=== PATIENT | male | born 1960 | race American Indian/Alaskan Native ===

== ENCOUNTER 2020-05-01 06:07 | Day surgery (SDC) | payer BC ==
[2020-05-01] MEDS ORDERED: ASPIRIN EC 325 MG TAB PO SCH (07:12)
[2020-05-01] MEDS: SODIUM CHLORIDE 0.9% 500 ML 500 ML IV SCH ×2 (07:33→08:38)
[2020-05-01] MEDS ORDERED: MIDAZOLAM 2 MG/2 ML INJ ONE (08:05)
[2020-05-01] MEDS ORDERED: fentaNYL 100 MCG/2 ML INJ ONE (08:05)
[2020-05-01] MEDS ORDERED: HEPARIN/NS 5000 UNIT/500ML 1,000 ML IR ONE (08:05)
[2020-05-01] MEDS: VERAPAMIL 5 MG/2 ML INJ ONE ×3 (08:37→08:41)
[2020-05-01] MEDS: LIDOCAINE (2%) 20 MG/1 ML VIAL 20 ML MDV INFILTRATI ONE ×3 (08:37→08:39)
[2020-05-01] MEDS: HEPARIN 10,000 UNITS/10 ML VIAL ONE ×3 (08:37→08:41)
[2020-05-01] MEDS: NITROGLYCERIN SYRINGE 3 ML ONE ×3 (08:39→08:41)
[2020-05-01] MEDS ORDERED: traMADol 50 MG TAB PO PRN (09:04)
[2020-05-01] MEDS ORDERED: HYDROcodone/ACETAMINOPHEN 5-325 MG TAB PO PRN (09:04)
--- NOTE | 2020-05-01 09:07 | Short Stay Summary ---
Short Stay Documentation Date of service: 05/01/20 - History H&P: obtained from office - Allergies and Medications Current Medications: Allergies No Known Allergies Allergy (Unverified 01/14/20 08:14) Home Medications Medication Instructions Recorded Confirmed Last Taken Type Amitriptyline [Elavil] 50 mg PO DAILY 05/01/20 05/01/20 04/30/20 History 50 mg Sildenafil Citrate 100 mg PO PRN PRN 05/01/20 05/01/20 04/22/20 History 100 mg Active Medications Hydrocodone Bitart/Acetaminophen ([place] 5/325) 1 each PO Q4H PRN PRN Reason: Pain, Moderate (4-6) Aspirin (Ecotrin) 325 mg PO ONCE SOFI Stop: 05/01/20 09:12 Last Admin: 05/01/20 07:31 Dose: 325 mg Documented by: Sodium Chloride (Nacl 0.9% 500 Ml) 500 mls @ 50 mls/hr IV DIRECT SOFI Stop: 05/01/20 17:59 Last Admin: 05/01/20 08:38 Dose: 50 mls/hr Documented by: Tramadol HCl (Ultram) 50 mg PO Q4H PRN PRN Reason: Pain, Mild (1-3) - Brief post op/procedure progress note Date of procedure: 05/01/20 Pre-op diagnosis: sob Post-op diagnosis: same Procedure: see report - normal coronaries and normal lv function Anesthesia: local Estimated blood loss: minimal Pathology: none Condition: stable - Disposition Condition at discharge: Good Disposition: DC-01 TO HOME OR SELFCARE - Discharge Diagnoses (1) Hypertension Status: Chronic Qualifiers: Hypertension type: essential hypertension Qualified Code(s): I10 - Essential (primary) hypertension (2) SOB (shortness of breath) Status: Chronic Short Stay Discharge Plan Activity: advance as tolerated Diet: low fat, low cholesterol, low salt Wound: keep clean and dry Follow up with: ERICK HERNANDEZ MD [Primary Care Provider] - 7 Days
--- NOTE | 2020-05-01 09:07 | Cardiac Catherization Report ---
LEFT HEART CATHETERIZATION CLINICAL INFORMATION: This is a 59-year-old patient with persistent shortness of breath, has a fixed inferior defect on stress test, here for left heart catheterization for suspected coronary artery disease. Procedure was done with moderate sedation started at 0837 hours, finished at 0847 hours, 10 minutes of moderate sedation. Procedure was done via the right radial artery, sterile technique, local anesthesia, 6-[place] radial sheath inserted. Left system engaged with JL3.5 catheter. Left main is large and patent, bifurcates into large LAD that is patent from proximally and distally. Diagonal 1 is a medium caliber vessel, patent. Circumflex and AV groove is a large caliber vessel, patent. OM1 is a large caliber vessel with an upper and lower branch are patent. OM2 is a small caliber vessel. OM3 and 4 are small to medium caliber vessel, patent. RCA was engaged with JR4, is a large dominant vessel, patent from proximally and distally. PDA is medium caliber vessel. PLV is a medium to small caliber vessel, patent. LV gram done in MARKY and HATHAWAY view shows normal LV function, LVEDP of 14 mmHg, LV is 126, aortic is 126/68. No gradient across the aortic valve on pullback. 5-Palestinian catheters all taken over guidewire, 6-[place] radial sheath was discontinued. Radial band applied. No hematoma, no bleeding. SUMMARY: Left main patent; left anterior descending patent; diagonal patent; circumflex patent; OM1, OM2, OM3 and OM4 are patent; right coronary artery large, dominant, patent; normal left ventricular function. Continue risk factor modification. Consider pulmonary workup for shortness of breath. JOB# [id number] JOHN/NTS
[2020-05-01 12:04] VITALS: BP 109/67
== END 2020-05-01 13:05 | disposition home or self-care (01) ==
LOC: CATH 06:07 → CATHLABREC 06:07
PROVIDERS: ATTEND Internal Medicine
DX: R06.02 Shortness of breath (principal); R94.39 Abnormal result of other cardiovascular function study; I10 Essential (primary) hypertension; K21.9 Gastro-esophageal reflux disease without esophagitis; M19.90 Unspecified osteoarthritis, unspecified site; F32.9 Major depressive disorder, single episode, unspecified; I20.8 Other forms of angina pectoris; E78.2 Mixed hyperlipidemia; F41.9 Anxiety disorder, unspecified; Z79.899 Other long term (current) drug therapy; Z87.891 Personal history of nicotine dependence; Z72.89 Other problems related to lifestyle; Z83.3 Family history of diabetes mellitus; Z82.49 Family history of ischemic heart disease and other diseases of the circulatory system
CPT/HCPCS: 93005; 93458; 99156; C1894; J1644; J2250; J3010; J7040; Q9967